=== PATIENT | female | born 1990 | race Caucasian/White ===

== ENCOUNTER 2016-12-30 17:11 | Emergency (ER) | payer MEDICARE, MEDICAID ==
[2016-12-30 17:44] VITALS: BP 128/79
[2016-12-30] MEDS ORDERED: IPRATROPIUM/ALBUTEROL 0.5-2.5 MG/3 ML AMPUL NEB ONE (19:52)
[2016-12-30] MEDS ORDERED: PREDNISONE 20 MG TABLET PO ONE (19:52)
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
--- NOTE | 2016-12-31 08:56 | EKG REPORT ---
SEVERITY:- BORDERLINE ECG - SINUS RHYTHM PROBABLE LEFT ATRIAL ABNORMALITY : Confirmed by: Kiet Lim MD 31-Dec-2016 08:55:44
== END 2016-12-30 21:00 | disposition home or self-care (01) ==
LOC: ER 17:11
DX: J70.5 Respiratory conditions due to smoke inhalation (principal); R06.2 Wheezing; R05 Cough; R11.0 Nausea; R06.02 Shortness of breath; Z87.891 Personal history of nicotine dependence
CPT/HCPCS: 93005; 94640; 99285; 71020; 93010; A9270 ×2; J7512; J7620

== ENCOUNTER 2017-01-18 16:01 | Emergency (ER) | payer MEDICARE, MEDICAID ==
[2017-01-18 16:14] VITALS: BP 136/84
--- NOTE | 2017-01-18 17:13 | ER Document Report ---
HPI - HPI Patient complains to provider of: Left arm pain Onset: Other Onset/Duration: Intermittent Quality of pain: Throbbing Severity: Moderate Pain Level: 4 Context: Patient states that she has been having left arm pain for the last week that will not stop. She feels her arm is swollen and has intermittent numbness, and hot and cold to the arm. Patient denies known injury, history of carpal tunnel surgery 2 years ago left wrist. Denies chest pain or shortness of breath. Associated Symptoms: None Exacerbated by: Movement Relieved by: Remaining still Similar symptoms previously: No Recently seen / treated by doctor: No - ROS ROS below otherwise negative: Yes Systems Reviewed and Negative: Yes All other systems reviewed and negative - CONSTITUTIONAL Constitutional: DENIES: Fever - EENT EENT: DENIES: Nasal Drainage-Purulent - NEURO Neurology: DENIES: Headache - CARDIOVASCULAR Cardiovascular: DENIES: Chest pain - RESPIRATORY Respiratory: DENIES: Trouble Breathing - GASTROINTESTINAL Gastrointestinal: DENIES: Abdominal Pain - URINARY Urinary: DENIES: Dysuria - MUSCULOSKELETAL Musculoskeletal: REPORTS: Extremity pain - Left shoulder down left arm - DERM Skin Color: Normal Skin Problems: None Notes: Patient does state one day this week her shoulder felt like it popped out of place. She states this happened after the pain in the shoulder started. Past Medical History - General Information source: Patient - Social History Smoking Status: Never Smoker Frequency of alcohol use: None Drug Abuse: None Lives with: Family Family History: Reviewed & Not Pertinent Patient has suicidal ideation: No Patient has homicidal ideation: No Pulmonary Medical History: Reports: Hx Asthma Past Surgical History: Reports: Hx Orthopedic Surgery Vertical Provider Document - CONSTITUTIONAL Agree With Documented VS: Yes Exam Limitations: No Limitations General Appearance: WD/WN, No Apparent Distress - INFECTION CONTROL TRAVEL OUTSIDE OF THE [place] IN LAST 30 DAYS: No - HEENT HEENT: Atraumatic, Normocephalic - NECK Neck: Normal Inspection, Supple - RESPIRATORY Respiratory: Breath Sounds Normal, No Respiratory Distress O2 Sat by Pulse Oximetry: 98 - CARDIOVASCULAR Cardiovascular: Regular Rate, Regular Rhythm - GI/ABDOMEN Gastrointestinal: Abdomen Soft - BACK Back: Normal Inspection - MUSCULOSKELETAL/EXTREMETIES Musculoskeletal/Extremeties: MAEW, FROM, Tender - Palpation of the left wrist causes tingling sensation to radiate upper arm, No Edema Notes: Patient tender across left trapezius and AC joint of left shoulder. Pain reproduced with palpation. Patient reports pain with putting hands behind her back, and trying to raise them over her head. More limited in raising the left shoulder over her head. Vascular and sensation intact. Slight decreased applications processor strength noted in left hand. - NEURO Level of Consciousness: Awake, Alert, Appropriate - DERM Integumentary: Warm, Dry Course - Re-evaluation Re-evalutation: 01/18/17 18:15 X-rays negative and discussed with patient. - Vital Signs Vital signs: Temp Pulse Resp BP Pulse Ox 98.1 F 82 16 136/84 H 98 01/18/17 16:12 01/18/17 16:12 01/18/17 16:12 01/18/17 16:12 01/18/17 16:12 Procedures - Immobilization Left Arm Pre-Proc Neuro Vasc Exam: Normal Immobilizer type: Sling Performed by: PCT Post-Proc Neuro Vasc Exam: Normal Alignment checked and good: Yes Discharge - Discharge Clinical Impression: Left arm pain Left shoulder pain Qualifiers: Chronicity: acute Qualified Code(s): M25.512 - Pain in left shoulder Condition: Good Disposition: HOME, SELF-CARE Additional Instructions: Wear arm sling as instructed Medications as prescribed Ice or heat packs to your shoulder Recommend follow-up with your PCP for further evaluation. X-ray today normal, but range of motion decreased to left shoulder. May need orthopedic follow-up. Return as needed Prescriptions: Hydrocodone/Acetaminophen [Ewing 5-325 mg Tablet] 1 tab PO PRN PRN #15 tablet PRN Reason: Naproxen 500 mg PO BID #20 tablet
--- NOTE | 2017-01-18 17:50 | RADIOLOGY REPORT (SQ) ---
EXAM DESCRIPTION: CERV SP 4 OR 5 VIEWS COMPLETED DATE/TIME: 01/18/2017 5:38 pm REASON FOR STUDY: pain COMPARISON: None. NUMBER OF VIEWS: Five views. TECHNIQUE: AP, lateral, obliques and odontoid radiographic images acquired of the cervical spine. LIMITATIONS: None. FINDINGS: MINERALIZATION: Normal. ALIGNMENT: Anatomic. VERTEBRAE: Vertebral bodies of normal height. DISCS: No significant osteophytes or sclerosis. Disc height maintained. FORAMINA: No osteophytes or foraminal narrowing. LATERAL AND POSTERIOR ELEMENTS: Facets, lateral masses and spinous processes without significant find ings. HARDWARE: None in the spine. SOFT TISSUES: No masses or calcifications. Lung apices clear. OTHER: No other significant finding. IMPRESSION: NO SIGNIFICANT RADIOGRAPHIC FINDING IN THE CERVICAL SPINE. TECHNICAL DOCUMENTATION: JOB ID: [id number] [employer]- All Rights Reserved
--- NOTE | 2017-01-18 17:52 | RADIOLOGY REPORT (SQ) ---
EXAM DESCRIPTION: SHOULDER LEFT 2 OR MORE VIEWS COMPLETED DATE/TIME: 01/18/2017 5:38 pm REASON FOR STUDY: pain COMPARISON: None. NUMBER OF VIEWS: Three views. TECHNIQUE: Internal rotation, external rotation, and Y view images acquired of the left shoulder. LIMITATIONS: None. FINDINGS: MINERALIZATION: Normal. BONES: No acute fracture or dislocation. No worrisome bone lesions. JOINTS: No dislocation. VISUALIZED LUNGS AND RIBS: No pneumothorax. No rib fracture. SOFT TISSUES: No radiopaque foreign body. OTHER: No other significant finding. IMPRESSION: NEGATIVE STUDY OF THE LEFT SHOULDER. NO RADIOGRAPHIC EVIDENCE OF ACUTE INJURY. TECHNICAL DOCUMENTATION: JOB ID: [id number] [employer]- All Rights Reserved
[2017-01-18] MEDS ORDERED: HYDROCODONE/ACETAMINOPHEN 5-325 MG TABLET PO ONE (18:06)
== END 2017-01-18 18:51 | disposition home or self-care (01) ==
LOC: ER 16:01
DX: M79.602 Pain in left arm (principal); M25.512 Pain in left shoulder
CPT/HCPCS: 99283; 72050; 73030; A9270

== ENCOUNTER 2017-12-26 10:55 | Day surgery (SDC) | payer MEDICARE, MEDICAID ==
[~2017-12-26 10:55] MED LIST: CEFAZOLIN SODIUM 2 GM in DEXTROSE 5%-WATER 100 ML IV PRN
[2017-12-26] MEDS ORDERED: LIDOCAINE 1% INJ-PF (10 MG/ML) 30 ML SDV ONE (13:38)
[2017-12-26] MEDS ORDERED: BUPIVACAINE HCL 0.25 % INJ/PF (2.5 MG/1 ML) 30 ML VIAL ONE (13:38)
[2017-12-26] MEDS ORDERED: HYDROMORPHONE HCL INJ/PF 2 MG/ML AMPULE ONE (14:28)
[2017-12-26] MEDS ORDERED: PROPOFOL INJ 200 MG/20 ML VIAL IV ONE (14:29)
[2017-12-26] MEDS ORDERED: MIDAZOLAM 2 MG/2 ML INJ ONE ×2 (14:29→15:39)
[2017-12-26] MEDS ORDERED: FENTANYL CITRATE INJ/PF 100 MCG/2 ML AMPUL ONE (14:29)
[2017-12-26] MEDS ORDERED: KETOROLAC TROMETHAMINE INJ/PF 30 MG/1 ML SDV ONE (15:30)
[2017-12-26] MEDS ORDERED: PROMETHAZINE HCL INJ 25 MG/1 ML VIAL ONE (15:31)
[2017-12-26] MEDS ORDERED: ONDANSETRON HCL INJ/PF 4 MG/2 ML SDV ONE (15:36)
[2017-12-26] MEDS ORDERED: PROMETHAZINE HCL INJ 25 MG/1 ML VIAL IV PRN (15:45)
[2017-12-26] MEDS ORDERED: ONDANSETRON HCL INJ/PF 4 MG/2 ML SDV IV PRN (15:45)
[2017-12-26] MEDS ORDERED: FENTANYL CITRATE INJ/PF 100 MCG/2 ML AMPUL IV PRN ×3 (15:45)
--- NOTE | 2017-12-26 15:51 | Operative Report ---
Nonrecallable Operative Report DATE OF SURGERY: 12/26/17 PREOPERATIVE DIAGNOSIS: Left upper quadrant abdominal wall lipoma POSTOPERATIVE DIAGNOSIS: Same as above (6.5 centimeters in diameter) OPERATION: 1. Excision of a 6.5 cm abdominal wall lipoma. 2. Intermediate closure a 5 cm abdominal incision. SURGEON: CHARLIE ALMEIDA ANESTHESIA: LMAC TISSUE REMOVED OR ALTERED: 0.5 cm abdominal wall lipoma COMPLICATIONS: None apparent ESTIMATED BLOOD LOSS: Minimal PROCEDURE: Drains/implants: None. After informed consent was obtained, the patient was laid in the supine position in the operating room. The area of the abdomen was prepped and draped in a normal sterile fashion. A 15 blade scalpel was used to create a 5 cm incision over the lipoma. The lipoma was removed from the surrounding fatty tissue using Bovie electrocautery. The lipoma did extend down to the fascia of the abdominal wall. Once the lipoma was completely removed from the patient. it was passed off the field and measured. The measurement was 6.5 cm in total diameter. The wound was irrigated. The subcutaneous tissue was closed using 3- 0 Vicryl suture in simple running fashion. The overlying skin was closed using 4-0 Vicryl Rapide suture in subcuticular fashion. All sponge, instrument, and needle counts were correct 2. Condition: Stable.
[2017-12-26 17:23] VITALS: BP 134/85
--- NOTE | 2018-01-03 11:28 | Discharge Summary ---
Discharge Summary (SDC) - Discharge Final Diagnosis: lipoma Date of Surgery: 12/26/17 Forms: ASU Anesthesia D/C Instruction, Discharge POC-Surgical Service Treatment or Instructions: CONTINUE HOME MEDICATIONS SCHEDULED LEAVE STERI STRIPS ON UNTIL THEY FALL OFF ON THEIR OWN MAY SHOWER TOMORROW NON-STRENUOUS ACTIVITY UNTIL FOLLOW UP FOLLOW UP IN 2 WEEKS OR SCHEDULED CALL CLINIC WITH ANY QUESTIONS OR CONCERNS Referrals: CHARLIE ALMEIDA MD [ACTIVE STAFF] - 01/09/18 1:30 pm Respiratory Treatments at Home: Deep Breathing/Coughing Discharge Activity: Activity As Tolerated, No Lifting Over 10 Pounds Home Care Assistance: None Needed Report the Following to Your Physician Immediately: Increase in Pain, Fever over 101 Degrees, Unusual Bleeding, Redness, Warmth, Drainage-Foul Smelling
== END 2017-12-26 17:10 | disposition home or self-care (01) ==
LOC: OROUT 10:55
PROVIDERS: ATTEND Surgery
DX: D17.1 Benign lipomatous neoplasm of skin and subcutaneous tissue of trunk (principal); K21.9 Gastro-esophageal reflux disease without esophagitis; J45.909 Unspecified asthma, uncomplicated; D64.9 Anemia, unspecified; M41.9 Scoliosis, unspecified; M94.0 Chondrocostal junction syndrome [Tietze]; Z87.891 Personal history of nicotine dependence; Z87.19 Personal history of other diseases of the digestive system; Z79.51 Long term (current) use of inhaled steroids; Z79.899 Other long term (current) drug therapy
CPT/HCPCS: 88304 ×2; 21931; J2250; J0690; J3010; J3490; J1885; J1170; J2550; J2405; J2704; 700

== ENCOUNTER 2020-08-16 20:58 | Emergency (ER) | payer MEDICARE, MEDICAID ==
[2020-08-16] MEDS ORDERED: KETOROLAC TROMETHAMINE INJ/PF 30 MG/1 ML SDV IM ONE (22:20)
--- NOTE | 2020-08-16 22:23 | ER Document Report ---
ED Medical Screen (RME) - General Chief Complaint: Abdominal Pain Stated Complaint: LEFT ABDOMINAL PAIN, BACK PAIN Time Seen by Provider: 08/16/20 22:16 Primary Care Provider: KIMBERLEE LEI JR, MD [Primary Care Provider] - Follow up as needed Mode of Arrival: Ambulatory Information source: Patient TRAVEL OUTSIDE OF THE [place] IN LAST 30 DAYS: No - HPI Patient complains to provider of: LLQ abdo pain, left flank pain Notes: 08/16/20 22:22 Patient here with complaints of left lower abdominal pain and left flank pain that started yesterday. Pain is gotten worse today. She has had some vomiting from pain, no vomiting otherwise. No diarrhea. No dysuria or hematuria although she states she feels he cannot fully urinate. She had multiple prior abdominal surgeries including a total hysterectomy, cholecystectomy. No fevers. No history of kidney stones. Exam: Nontoxic, no distress. Lungs clear and equal throughout. Left lower quadrant abdominal tenderness on limited triage abdominal exam with left-sided CVA tenderness. An initial examination was made on the patient as part of the triage process, and it was determined a more comprehensive evaluation was necessary. Initial orders were placed and patient was transferred to another provider in the ED who assumed care and finished evaluation and plan. - Related Data Allergies/Adverse Reactions: diphenhydramine [From Benadryl] Allergy (Verified 08/16/20 22:13) latex Allergy (Verified 08/16/20 22:13) neomycin Allergy (Verified 08/16/20 22:13) phenazopyridine Allergy (Verified 08/16/20 22:13) soap Allergy (Verified 08/16/20 22:13) Sulfa (Sulfonamide Antibiotics) Allergy (Verified 08/16/20 22:13) Home Medications: "SEVERAL" Past Medical History - Social History Frequency of alcohol use: None Drug Abuse: None - Past Medical History Cardiac Medical History: Denies: Hx Coronary Artery Disease, Hx Heart Attack, Hx Hypertension Pulmonary Medical History: Reports: Hx Asthma Denies: Hx Bronchitis, Hx COPD, Hx Pneumonia Neurological Medical History: Denies: Hx Cerebrovascular Accident, Hx Seizures Renal/ Medical History: Denies: Hx Peritoneal Dialysis Musculoskeltal Medical History: Denies Hx Arthritis Past Surgical History: Reports: Hx Orthopedic Surgery - Immunizations Hx Diphtheria, Pertussis, Tetanus Vaccination: Yes Doctor's Discharge - Discharge Referrals: KIMBERLEE LEI JR, MD [Primary Care Provider] - Follow up as needed
[2020-08-16 22:45] LABS: ABSOLUTE MONOCYTES (AUTO) 0.7 10^3/uL (0.1-1.4); ABSOLUTE NEUT (AUTO) 4.8 10^3/uL (1.7-8.2); BASOPHILS % (AUTO) 0.4 % (0-2); EOSINOPHILS % (AUTO) 0.6 % (0-6); HEMATOCRIT 38.4 % (36.0-47.0); HEMOGLOBIN 13.4 g/dL (12.0-15.5); LYMPHOCYTES % (AUTO) 26.8 % (13-45); MEAN CORPUSCULAR HEMOGLOBIN 30.1 pg (27.0-33.4); MEAN CORPUSCULAR HGB CONC 34.8 g/dL (32.0-36.0); MEAN CORPUSCULAR VOLUME 87 fl (80-97); MONOCYTES % (AUTO) 8.5 % (3-13); PLATELET COUNT 196 10^3/uL (150-450); RED BLOOD COUNT 4.44 10^6/uL (3.72-5.28); RED CELL DISTRIBUTION WIDTH 12.8 % (11.5-14.0); SEGMENTED NEUTROPHILS % (AUTO) 63.7 % (42-78); TOTAL CELLS COUNTED % (AUTO) 100 %; WHITE BLOOD COUNT 7.6 10^3/uL (4.0-10.5)
[2020-08-16 23:00] LABS: APPEARANCE,URINE SLIGHTLY-CLOUDY; BILIRUBIN,URINE NEGATIVE (NEGATIVE); COLOR,URINE YELLOW; GLUCOSE, URINE NEGATIVE (NEGATIVE); KETONES,URINE NEGATIVE (NEGATIVE); LEUKOCYTE ESTERASE,URINE NEGATIVE (NEGATIVE); NITRITE,URINE NEGATIVE (NEGATIVE); PROTEIN,URINE NEGATIVE (NEGATIVE); URINE SPECIFIC GRAVITY 1.025
[2020-08-16 23:04] LABS: ALBUMIN 4.1 g/dL (3.5-5.0); ALKALINE PHOSPHATASE 106 U/L (38-126); ANION GAP 7 (5-19); ASPARTATE AMINO TRANSFERASE 18 U/L (14-36); BILIRUBIN,DIRECT 0.2 mg/dL (0.0-0.4); BILIRUBIN,TOTAL 0.3 mg/dL (0.2-1.3); BLOOD UREA NITROGEN 8 mg/dL (7-20); CALCIUM 9.7 mg/dL (8.4-10.2); CARBON DIOXIDE 29 mmol/L (22-30); CHLORIDE 103 mmol/L (98-107); GLUCOSE 117 mg/dL (75-110); POTASSIUM 3.8 mmol/L (3.6-5.0); TOTAL PROTEIN 7.4 g/dL (6.3-8.2)
--- NOTE | 2020-08-16 23:55 | RADIOLOGY REPORT (SQ) ---
EXAM DESCRIPTION: CT ABDOMEN PELVIS WITHOUT IV CONTRAST COMPLETED DATE/TME: 08/16/2020 23:08 CLINICAL HISTORY: 30 years, Female, LLQ pain, left flank pain COMPARISON: None. TECHNIQUE: 313 Images stored on PACS. All CT scanners at this facility use dose modulation, iterative reconstruction, and/or weight based dosing when appropriate to reduce radiation dose to as low as reasonably achievable (ALARA). [facility]: Dose Right [facility]: CareDose [facility]: Dose Right [facility]: Teradose 4D [facility]: [employer] LIMITATIONS: None. FINDINGS: Visualized lung bases are unremarkable. Osseous structures are grossly intact. Limited evaluation of the liver, spleen, adrenal glands, pancreas, kidneys is unremarkable. Status post cholecystectomy. Negative for urinary tract calculus or hydronephrosis. No gross evidence for bowel obstruction. Urinary bladder is not distended, limiting its evaluation. Large amount of stool in the colon. No free air or free fluid. There is a nonspecific cystic structure in the left adnexa measuring 2.5 x 2.9 cm. Appendix not well seen. No pericecal inflammation. IMPRESSION: Large amount of stool in the colon. Left adnexal cyst measuring 2.5 x 2.9 cm. Recommend follow-up as per below. Recommendations for Benign-appearing simple adnexal cysts on CT with IV contrast and MR: (1)(2) Pre-menopause(3) (<= 50 years if LMP unknown): <=5 cm: No follow-up imaging recommended >5 cm - <=7 cm: US f/u 6-12 weeks >7 cm: Consider MR w/IVC or surgical evaluation Early post-menopause (<=5 years from LMP; > 50 years to <= 55 years if LMP unknown): <=3 cm: No follow-up imaging recommended (4) >3 cm - <=5 cm: US f/u 6-12 months (4) >5 cm - <=7 cm: US f/u promptly >7cm: Consider MR w/IVC or surgical evaluation Late post-menopause (>5 years from LMP; > 55 years if LMP unknown): <=3 cm: No follow-up imaging recommended >3 cm - <=7 cm: US f/u promptly >7 cm: Consider MR w/IVC or surgical evaluation (1)Recommendations based on the 2013 ACR White Paper for Managing Incidental Adnexal Findings on Abdominal and Pelvic CT and MRI: J Am Janae Radiol 2013;10:675-681 (2)Excludes normal/benign findings such as ovarian calcifications w/o associated non-calcified mass, corpus luteum cyst, previously characterized cyst and cyst with documented stability in size and appearance for >2 years (3)Includes cysts with layering hemorrhage (4)If internal hemorrhage suspected in cyst, US f/u 6-12 weeks TECHNICAL DOCUMENTATION: Quality ID # [id number]: Final reports with documentation of one or more dose reduction techniques (e.g., Automated exposure control, adjustment of the mA and/or kV according to patient size, use of iterative reconstruction technique) copyright 2011 [employer]- All Rights Reserved
--- NOTE | 2020-08-17 06:48 | RADIOLOGY REPORT (SQ) ---
Ultrasound of the pelvis: 08/17/2020 5:45 AM RECYCLING ATTENDANT HISTORY: 30-year-old patient with left pelvic pain. TECHNIQUE: Multiple grayscale and color Doppler images of the pelvis were obtained transabdominally and transvaginally. COMPARISON: None available FINDINGS: The uterus and ovaries are reported to be surgically absent. There is a left adnexal hypodensity measuring up to 3.2 x 2.5 x 3.1 cm. This likely represents a physiologic cyst. This may arise from the left ovary or represent a paraovarian cyst. No free fluid is seen. IMPRESSION: There is a left adnexal cyst measuring up to 3.2 cm. If the patient is postmenopausal, this can be followed in one year.
--- NOTE | 2020-08-17 07:48 | ER Document Report ---
ED GI/ - General Chief Complaint: Abdominal Pain Stated Complaint: LEFT ABDOMINAL PAIN, BACK PAIN Time Seen by Provider: 08/16/20 22:16 Mode of Arrival: Ambulatory Information source: Patient Notes: 30-year-old female presented to ED for complaint of left lower quadrant/flank/pelvic pain since yesterday. She stated got worse today. She states she had some vomiting with the pain but no vomiting otherwise. She states she does have a history of you were seen for pain in your abdomen that is likely related to gallstones. Your work-up today does not show any signs that you need to have your gallbladder removed tonight. However, you will likely need surgery as an outpatient in the coming weeks. Please contact the surgery clinic in the next 24-48 hours to discuss the need for further evaluation and consideration of surgery. Return to the ED immediately if you develop worsening pain, persistent vomiting, become unable to tolerate fluids, have a fever of >1004, or any other symptoms that are concerning to you. But no history of kidney stone. She states she has had a complete hysterectomy. She states first she had a left salpingo-oophorectomy for a ovarian cyst that torsed and then ruptured and then she had a complete hysterectomy. She states she also had a cholecystectomy.. She is also had multiple other surgeries. She was seen in triage and had ordered a CT abdomen pelvis. She did also have lab work were. These were reviewed with patient and patient states there was no way she had a left ovarian cyst when she had had her left ovary removed. Patient was insistent that she cannot have a ovarian cyst a transvaginal ultrasound was completed. The ultrasound did show an ovarian cyst. I did instruct the patient to please follow-up with her primary care doctor and have them sent her to an SOCIAL WORK MANAGER to further evaluate this. I did give her a CD with the CT and ultrasound to take to the primary care. I did give her a copy of the written report for the CT ultrasound and lab work. Constitutional: Negative for fever. HENT: Negative for sore throat. Eyes: Negative for visual changes. Cardiovascular: Negative for chest pain. Respiratory: Negative for shortness of breath. Gastrointestinal: Patient complains of left abdominal pain that then went around to the back. She also complained of left pelvic pain. She denied any urinary symptoms. Genitourinary: Negative for dysuria. Musculoskeletal: Left lower back pain Skin: Negative for rash. Neurological: Negative for headaches, weakness or numbness. 10 point ROS negative except as marked above and in HPI. VITAL SIGNS: Within normal limits. GENERAL: No acute distress, non-toxic appearance. HEAD: Normal with no signs of head trauma. EYES: PERRLA, EOMI, conjunctiva normal, no discharge. EARS: Hearing grossly intact. NOSE: Normal. THROAT: Oropharynx is normal. NECK: Normal range of motion, no tenderness, supple, no lymphadenopathy, No adenopathy, no JVD. CHEST: Clear breath sounds bilaterally. No wheezes, rales, or rhonchi. CARDIAC: Regular rate and rhythm. S1 and S2, without murmurs, gallops, or rubs. VASCULAR: No Edema. Peripheral pulses normal and equal in all extremities. ABDOMEN: Soft tender to the left lower quadrant and left pelvic area. No masses no pulsatile masses GASTROINTESTINAL: Bowel sounds normal GENITOURINARY: Left pelvic tenderness LYMPATHTIC: No lymphadenopathy noted. MUSCULOSKELETAL: Good range of motion of all major joints. Extremities without clubbing, cyanosis or edema. NEUROLOGICAL: Alert and oriented x 3. No focal sensory or strength deficits. Speech normal. Follows commands appropriately. PSYCHIATRIC: Normal Affect, judgement and mood. SKIN: Normal appearance with no rashes or lesions. TRAVEL OUTSIDE OF THE [place] IN LAST 30 DAYS: No - HPI Patient complains to provider of: Abdominal pain, Pelvic pain, Vomiting Onset: Just prior to arrival Timing/Duration: Intermittent Quality of pain: Cramping Severity at maximum: Severe Severity in ED: Moderate Pain Level: 3 Location: LLQ, Left flank, Pelvis Vaginal bleeding (Compared to normal period): None Menstrual period history: Post-menopausal - Hysterectomy Associated symptoms: Nausea, Vomiting - Only with pain Exacerbated by: Movement Relieved by: Denies Similar symptoms previously: Yes Recently seen / treated by doctor: No - Related Data Allergies/Adverse Reactions: diphenhydramine [From Benadryl] Allergy (Verified 08/16/20 22:13) latex Allergy (Verified 08/16/20 22:13) neomycin Allergy (Verified 08/16/20 22:13) phenazopyridine Allergy (Verified 08/16/20 22:13) soap Allergy (Verified 08/16/20 22:13) Sulfa (Sulfonamide Antibiotics) Allergy (Verified 08/16/20 22:13) Home Medications: "SEVERAL" Past Medical History - General Information source: Patient - Social History Smoking Status: Former Smoker Frequency of alcohol use: None Drug Abuse: None Lives with: Family Family History: Reviewed & Not Pertinent Patient has suicidal ideation: No Patient has homicidal ideation: No - Past Medical History Cardiac Medical History: Reports: None Pulmonary Medical History: Reports: Hx Asthma EENT Medical History: Reports: None Neurological Medical History: Reports: None Endocrine Medical History: Reports: None Renal/ Medical History: Reports: Hx Ovarian Cysts, Other - Ovarian torsion Malignancy Medical History: Reports: None GI Medical History: Reports: Other - Hernia, multiple adhesions, mesh doing to hernia repair, 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 Musculoskeletal Medical History: Reports Hx Musculoskeletal Deformity, Reports Hx Musculoskeletal Trauma Skin Medical History: Reports None Psychiatric Medical History: Reports: None Traumatic Medical History: Reports: Hx Fractures Infectious Medical History: Reports: None Past Surgical History: Reports: Hx Breast Surgery - Multiple benign tumors, Hx Gynecologic Surgery - Salpingo-oophorectomy 10 complete hysterectomy, Hx Hysterectomy, Hx Oral Surgery - Radom teeth, Hx Orthopedic Surgery - Carpal tunnel, Hx Tonsillectomy - Immunizations Hx Diphtheria, Pertussis, Tetanus Vaccination: Yes Physical Exam - Vital signs Vitals: Temp Pulse Resp BP Pulse Ox 98.0 F 91 18 156/87 H 100 08/16/20 21:05 08/16/20 21:05 08/16/20 21:05 08/16/20 21:05 08/16/20 21:05 Course - Vital Signs Vital signs: Temp Pulse Resp BP Pulse Ox 98.4 F 86 18 148/78 H 99 08/17/20 08:02 08/17/20 08:02 08/17/20 08:02 08/17/20 08:02 08/17/20 08:02 - Laboratory Results Result Diagrams: 08/16/20 22:37 08/16/20 22:37 Laboratory Results Interpreted: 08/16/20 08/16/20 22:37 22:37 Creatinine 0.50 L Glucose 117 H Urine Urobilinogen 2.0 H Critical Laboratory Results Reviewed: No Critical Results - Radiology Results Critical Radiology Results Reviewed: No Critical Results Discharge - Discharge Clinical Impression: Left ovarian cyst Abdominal pain Qualifiers: Abdominal location: left lower quadrant Qualified Code(s): R10.32 - Left lower quadrant pain Condition: Stable Disposition: HOME, SELF-CARE Additional Instructions: HomeOvarian Cyst Your examination shows the presence of an ovarian cyst. This is a ball of fluid attached to the ovary. Ovarian cysts in women of child-bearing age are usually innocent. However, the cyst may cause pain when it grows or bursts. An innocent ovarian cyst will usually go away by itself. When the cyst becomes painful, you should rest. Pain medication may be required. Some women find a hot water bottle soothing. The pain usually resolves within one or two days. After menopause, an ovarian cyst may mean a tumor, and requires more aggressive evaluation -- usually surgery is recommended to remove or biopsy the cyst. A very large cyst requires evaluation at any age. Most cysts (even the innocent ones) require follow-up examination. Call the doctor or return at any time if the pain increases significantly, if you become faint, or if you experience vaginal bleeding. Acetaminophen Acetaminophen may be taken for pain relief or fever control. It's much safer than aspirin, offering a wider range of "safe" dosages. It is safe during . Some brand names are Tylenol, Panadol, Datril, Anacin 3, Tempra, and Liquiprin. Acetaminophen can be repeated every four hours. The following are maximum recommended dosages: WEIGHT Dose Drops Elixir Chewable(80mg) (LBS.) drprs=droppers tsp=teaspoon 6 40 mg .4 ml (1/2) 6-11 80 mg .8 ml (full) 1/2 tsp 1 tab 12-16 120 mg 1 1/2 drprs 3/4 tsp 1 1/2 tabs 17-23 160 mg 2 drprs 1 tsp 2 tabs 24-30 240 mg 3 drprs 1 1/2 tsp 3 tabs 30-35 320 mg 2 tsp 4 tabs 36-41 360 mg 2 1/4 tsp 4 1/2 tabs 42-47 400 mg 2 1/2 tsp 5 tabs 48-53 480 mg 3 tsp 6 tabs 54-59 520 mg 3 1/4 tsp 6 1/2 tabs 60-64 560 mg 3 1/2 tsp 7 tabs 65-70 600 mg 3 3/4 tsp 7 1/2 tabs 71-76 640 mg 4 tsp 8 tabs 77-82 720 mg 4 1/2 tsp 9 tabs 83-88 800 mg 5 tsp 10 tabs >89 pounds or adults 650 mg to 900 mg Acetaminophen can be repeated every four hours. Maximum daily dose not to exceed 4000 mg. These maximum recommended dosages are slightly higher than the dosages written on the product container, but these dosages are very safe and well below the toxic dosage for acetaminophen. Given you a copy of the written report for the ultrasound the CT and the lab work. Please take these with you to your primary care doctor and get a referral to an SOCIAL WORK MANAGER. I have also given you a CD of the films to ensure that your SOCIAL WORK MANAGER you follow-up with can visualize what is going on. States she did not have a left ovary so it is important that she follow-up soon. FOLLOW-UP CARE: If you have been referred to a physician for follow-up care, call the physicians office for an appointment as you were instructed or within the next two days. If you experience worsening or a significant change in your symptoms, notify the physician immediately or return to the Emergency Department at any time for re-evaluation. Forms: Parent Work Note, Return to Work
[2020-08-17 08:03] VITALS: BP 148/78
== END 2020-08-17 08:03 | disposition home or self-care (01) ==
LOC: ER 20:58
DX: N83.202 Unspecified ovarian cyst, left side (principal); R10.32 Left lower quadrant pain; R10.2 Pelvic and perineal pain; R10.9 Unspecified abdominal pain; M54.5 Low back pain; R11.2 Nausea with vomiting, unspecified; J45.909 Unspecified asthma, uncomplicated; Z79.899 Other long term (current) drug therapy; Z87.891 Personal history of nicotine dependence; Z88.8 Allergy status to other drugs, medicaments and biological substances; Z91.040 Latex allergy status; Z88.3 Allergy status to other anti-infective agents; Z88.2 Allergy status to sulfonamides
CPT/HCPCS: 99285; 96372; 36415; 83690; 85025; 80053; 81001; 76830; 74176; J1885